=== PATIENT | female | born 1955 | race African-American/Black ===

== ENCOUNTER 2017-07-16 14:52 | Day surgery (SDC) | payer BC ==
[2017-07-16] MEDS ORDERED: FLUMAZENIL INJ 0.5 MG/5 ML VIAL ONE (15:56)
[2017-07-16] MEDS ORDERED: NALOXONE HCL INJ/PF 0.4 MG/1 ML SDV ONE (15:56)
[2017-07-16] MEDS ORDERED: FENTANYL CITRATE INJ/PF 100 MCG/2 ML AMPUL ONE (15:56)
[2017-07-16] MEDS ORDERED: GLUCAGON,HUMAN RECOMB 1 MG INJ ONE (15:57)
[2017-07-16] MEDS ORDERED: EPINEPHRINE INJ 1 MG/10 ML DISP.SYRIN ONE (15:57)
[2017-07-16] MEDS: MIDAZOLAM 2 MG/2 ML INJ ONE ×2 (16:10→16:20)
--- NOTE | 2017-07-16 16:55 | Operative Report ---
Operative Report DATE OF SURGERY: 07/16/17 Operative Report: Pre-op diagnosis: Colon cancer screening and history of colon polyps Post-op diagnosis: 1. Descending and sigmoid colon polyp 2. Distal sigmoid ?polyp Surgery: Colonoscopy with polypectomy and biopsy Medications: Versed 3mg, Fentanyl 100mcg IV push Tissue removed: Colon polyps and sigmoid lesion Procedure: After informed consent obtained from patient, conscious sedation was achieved. A digital rectal examination was performed and this was unremarkable. The colonoscope was inserted into the rectum and advanced to the cecum. The appendiceal orifice and the terminal ileum were both identified. The mucosa was examined into details as the colonoscope was slowly pulled out of the patient. The endoscope was retroflexed in the rectum. Patient tolerated the procedure well. Findings Cecum: Normal Ascending colon: Normal Transverse colon: Normal Descending colon: two 4 mm polyps removed with a cold snare Sigmoid colon: 5 mm polyp removed with the cold snare. There was a 12-16 mm area of mild erythema, mucosal thickening and polypoid elevation in the distal sigmoid at about 20 cm from the anal verge. Biopsy was taken from this lesion and the area tattooed. Rectum: Normal except for internal hemorrhoids Plan: Await pathology. Will need repeat colonoscopy in 5 years due to the polyps OPERATION: .
[2017-07-16 17:48] VITALS: BP 110/59
== END 2017-07-16 17:48 | disposition home or self-care (01) ==
LOC: END 14:52
PROVIDERS: ATTEND Internal Medicine Gastroenterology
PROC: 0DBN8ZX Excision of Sigmoid Colon, Via Natural or Artificial Opening Endoscopic, Diagnostic (ICD-10-PCS; principal; 2017-07-16 15:30)
PROC: 0DBM8ZX Excision of Descending Colon, Via Natural or Artificial Opening Endoscopic, Diagnostic (ICD-10-PCS; 2017-07-16 15:30)
DX: Z12.11 Encounter for screening for malignant neoplasm of colon (principal); D12.4 Benign neoplasm of descending colon; D12.5 Benign neoplasm of sigmoid colon; K64.8 Other hemorrhoids; Z86.010 Personal history of colon polyps; I10 Essential (primary) hypertension
CPT/HCPCS: 45380; 45385; 45381; 88305 ×2; J2250; J3010; J0171; J1610; J2310; J3490

== ENCOUNTER → 2020-06-28 | Outpatient (CLI) | payer BC ==
--- NOTE | 2020-06-28 14:51 | RADIOLOGY REPORT (SQ) ---
EXAM DESCRIPTION: VENOUS UNILATERAL LOWER IMAGES COMPLETED DATE/TIME: 06/28/2020 1:53 pm REASON FOR STUDY: RLE SWELLING R22.41 LOCALIZED SWELLING, MASS AND LUMP, RIGHT LOWER LIMB COMPARISON: None. TECHNIQUE: Dynamic and static elliott scale and color images acquired of the right leg venous system. S elected spectral images acquired with additional compression and augmentation maneuvers. The contrala teral common femoral vein and saphenofemoral junction were also imaged. Images stored on PACS. LIMITATIONS: None. FINDINGS: COMMON FEMORAL: Normal phasicity, compression and augmentation. No visualized echogenic ma terial on elliott scale. No defects on color images. FEMORAL: Normal compression and augmentation. No visualized echogenic material on elliott scale. No defe cts on color images. POPLITEAL: Normal compression, augmentation. No visualized echogenic material on elliott scale. No defec ts on color images. CALF VESSELS: Normal compression, augmentation. No visualized echogenic material on elliott scale. No de fects on color images. GSV and SSV: Normal compression, augmentation. No visualized echogenic material on elliott scale. No def ects on color images. ANY DEEP VENOUS INSUFFICIENCY: Not evaluated. ANY EVIDENCE OF POPLITEAL CYST: No. OTHER: No other significant finding. CONTRALATERAL COMMON FEMORAL VEIN AND SAPHENOFEMORAL JUNCTION: Normal phasicity, compression and augmentation. No visualized echogenic material on elliott scale. No de fects on color images. IMPRESSION: NO EVIDENCE DVT OR SVT IN THE RIGHT LEG. COMMENT: Preliminary report was called by the technologist to the referring clinician's office at th e time of the exam. TECHNICAL DOCUMENTATION: JOB ID: [id number] 2010 [employer]- All Rights Reserved Reading location - IP/workstation name: [email or web address]
== END ==
LOC: SP 13:15
PROVIDERS: ATTEND Internal Medicine
DX: R22.41 Localized swelling, mass and lump, right lower limb (principal)
CPT/HCPCS: 93971

== ENCOUNTER → 2020-07-07 | Outpatient (CLI) | payer BC ==
[~2020-07-07] MED LIST: COVID-19 VACCINE (PFIZER)/PF 30 MCG/0.3 ML VIAL IM ONE; EPINEPHRINE INJ/PF 1 MG/1 ML AMPULE IM PRN
== END ==
LOC: EMPHEALTH 08:16
PROVIDERS: ATTEND Internal Medicine
DX: Z23 Encounter for immunization (principal)
CPT/HCPCS: 91300

== ENCOUNTER → 2020-07-28 | Outpatient (CLI) | payer BC ==
--- OUTSIDE RECORDS SUMMARY | 2020-07-28 08:05 | XMS REPORT ---
:1955 Author Organization [facility] Address [address] [address] Care Team Providers Name Role Phone Felicitasbrayan, A Primary Care Physician Unavailable Allergies, Adverse Reactions, Alerts This patient has no known allergies or adverse reactions. Medications Ordered Filled Start Stop Current Ordering Indication Dosage Frequency Signature Comments Components Medication Medication Date Date Medication? Clinician (SIG) Name Name Chlorphenir 2019- No QID 1 tablet amine 9-10 10-10 as needed Maleate 4 00:00: 00:00 Orally MG 00 :00 every 6 hrs Zithromax 2018- No QD 2 tablets Z-Victor Manuel 250 9-10 09-15 on the MG 00:00: 00:00 first day, 00 :00 then 1 tablet daily for 4 days Orally Once a day Montelukast No QD 1 tablet Sodium 10 3-04 Orally mg 00:00: Once a day 00 Zithromax 2019- No QD 2 tablets Z-Victor Manuel 250 3-04 03-09 on the MG 00:00: 00:00 first day, 00 :00 then 1 tablet daily for 4 days Orally Once a day Valsartan-H No QD 1 tablet ydrochlorot Orally hiazide Once a day 160-12.5 MG Simvastatin No QD 1 tablet 40 mg Orally Once a day Aspirin 81 No QD 1 tablet MG Orally Once a day Problems Condition Condition Condition Status Onset Resolution Last Treatin g Comments Name Details Category Date Date Treatment Clinician Date Body mass Body mass Problem Active 2018-07 index 30+ - index (BMI) 0-27 obesity 30.0-30.9, 00:00: adult 00 Pure Pure Problem Active hypercholes hypercholes 5-05 terolemia terolemia 00:00: 00 Acute Acute Problem Active maxillary maxillary 5-05 sinusitis sinusitis, 00:00: unspecified 00 Body mass Body mass Problem Active 2015-07 index 30.00 index (BMI) 2-09 to 34.99 31.0-31.9, 00:00: adult 00 Hyperlipide Hyperlipide Problem Active 2015-07 sadi sadi, 2-09 unspecified 00:00: 00 Screening Encounter Problem Active for for 03-14 malignant screening 00:00: neoplasm of mammogram 00 breast for malignant neoplasm of breast Essential Essential Problem Active hypertensio (primary) 03-14 n hypertensio 00:00: n 00 Hypertensio Hypertensio Problem Active n n Procedures Procedure Date / Time Performed Performing Clinician Willem SCHILLING BP < 80 MM HG 2018-09-08 00:00:00 SYST BP LT 130 MM HG 2018-09-08 00:00:00 Results This patient has no known results. Assessments Condition Name Status Diagnosis Date Treating Clinici an - Streptococcal pharyngitis J02.0 Active [place]uoboh, [place] - Body mass index (BMI) 30.0-30.9, adult Active [place]oboh, [place] Z68.30 - Acute maxillary sinusitis, unspecified Active [place]oboh, [place] J01.00 - Essential (primary) hypertension I10 Active [place]uoboh, [place] - Body mass index (BMI) 31.0-31.9, adult Active [place]oboh, [place] Z68.31 - Encounter for screening mammogram for Active O[place]ebuoboh, [place] malignant neoplasm of breast Z12.31 - Essential (primary) hypertension I10 Active [place]uoboh, [place] - Encounter for screening for diabetes Active [place]uoboh, [place] mellitus Z13.1 - Encounter for general adult medical Active [place]ebuoboh, [place] examination without abnormal findings Z00.00 - Essential (primary) hypertension I10 Active [place]uoboh, [place] - Hyperlipidemia, unspecified E78.5 Active [place]oboh, [place] - Encounter for screening for diabetes Active [place]oboh, [place] mellitus Z13.1 - Encounter for screening for malignant Active [place]uoboh, [place] neoplasm of colon Z12.11 - Essential (primary) hypertension I10 Active [place]ebuoboh, [place] - Essential (primary) hypertension I10 Active [place]uoboh, [place] - Body mass index (BMI) 31.0-31.9, adult Active [place]ebuoboh, [place] Z68.31 - Hyperlipidemia, unspecified E78.5 Active [place]uoboh, [place] - Essential (primary) hypertension I10 Active [place]uoboh, [place] - Encounter for screening mammogram for Active Ojebuoboh, [place] malignant neoplasm of breast Z12.31 - Encounter for screening for diabetes Active O[place]ebuoboh, [place] mellitus Z13.1 - Routine general medical examination at [facility] V70.0 - Hypertension 401.9 Active Ojebuoboh, [place] - hypercholesterolemai 272.0 Active Oje buoboh, [place] - Hypertension 401.9 Active [place]ebuoboh, [place] - epigastric pain 789.06 Active [place] oh, [place] - Hypertension 401.9 Active [place]uoboh, [place] - hypercholesterolemai 272.0 Active Oje buoboh, [place] - Hypertension 401.9 Active [place]uoboh, [place] - hypercholesterolemai 272.0 Active Oje buoboh, [place] - Hypertension 401.9 Active [place]uoboh, [place] - hypercholesterolemai 272.0 Active Oje buoboh, [place] Encounters Start End Encounter Admission Attending Care Care Encounter Date/Time Date/Time Type Type Clinicians Facility Department ID 2020-01-28 2020-01-28 [facility] [place] [id number] 00:00:00 00:00:00 CATHLEEN 2019-05-28 2019-05-28 [facility] 30 [id number] 00:00:00 00:00:00 CATHLEEN CONNOLLY 2019-03-17 2019-03-17 [facility] 30 [id number] 00:00:00 00:00:00 PA CATHLEEN 2018-09-08 2018-09-08 [facility] [id number] 00:00:00 00:00:00 CATHLEEN CONNOLLY 2018-08-19 2018-08-19 [facility] [id number] 00:00:00 00:00:00 PA PA 2018-05-16 2018-05-16 [facility] 28 [id number] 00:00:00 00:00:00 PA PA 2017-04-29 2017-04-29 [facility] 23 [id number] 00:00:00 00:00:00 PA PA 2017-04-23 2017-04-23 [facility] 23 [id number] 00:00:00 00:00:00 PA PA 2017-03-15 2017-03-15 [facility] 23 [id number] 00:00:00 00:00:00 PA PA 2016-06-14 2016-06-14 [facility] 20 [id number] 00:00:00 00:00:00 PA PA 2016-03-14 2016-03-14 [facility] 20 [id number] 00:00:00 00:00:00 PA PA 2014-01-29 2014-01-29 [facility] 10 [id number] 00:00:00 00:00:00 PA PA 2014-01-07 2014-01-07 [facility] 13 [id number] 00:00:00 00:00:00 PA PA 2013-01-06 2013-01-06 [facility] 10 [id number] 00:00:00 00:00:00 PA PA 2012-12-04 2012-12-04 [facility] 10 [id number] 00:00:00 00:00:00 PA PA 2012-06-02 2012-06-02 [facility] [id number] 00:00:00 00:00:00 PA PA 2012-01-31 2012-01-31 [facility] [id number] 00:00:00 00:00:00 PA PA 2011-12-05 2011-12-05 [facility] [id number] 00:00:00 00:00:00 PA PA Social History This patient has no known social history. Vital Signs Vital Name Observation Time Observation Value Comments height 2019-03-17 14:00:00 61 [in_us] weight 2019-03-17 14:00:00 160.2 [lb_av] bmi 2019-03-17 14:00:00 30.27 kg/m2 heart rate 2019-03-17 14:00:00 93 /min temperature 2019-03-17 14:00:00 98.4 [degF] blood pressure systolic 2019-03-17 14:00:00 114 mm[Hg] blood pressure diastolic 2019-03-17 14:00:00 68 mm[Hg] height 2018-09-08 13:00:00 61 [in_us] weight 2018-09-08 13:00:00 167 [lb_av] bmi 2018-09-08 13:00:00 31.55 kg/m2 heart rate 2018-09-08 13:00:00 90 /min blood pressure systolic 2018-09-08 13:00:00 126 mm[Hg] blood pressure diastolic 2018-09-08 13:00:00 73 mm[Hg]
== END ==
LOC: EMPHEALTH 08:03
PROVIDERS: ATTEND Internal Medicine
DX: Z23 Encounter for immunization (principal)
CPT/HCPCS: 91300